=== PATIENT | female | born 1995 | race Caucasian/White ===

== ENCOUNTER 2018-01-16 13:50 | Emergency (ER) | payer OTHER, SELFPAY ==
--- NOTE | 2018-01-16 13:59 | ED_ITS ---
HPI - Female Genitourinary <VICTORINA Rocha - Last Filed: 01/16/18 22:06> General Chief complaint: Urogenital-Female Stated complaint: 'UTI' Time Seen by Provider: 01/16/18 14:09 History of Present Illness HPI Narrative: Healthy 22-year-old female here for complaint of having dysuria and increased urinary frequency for the last 2-3 days. She states that the symptoms have worsened a little bit today with worsening discomfort. She denies any flank pain. No nausea or vomiting. No fevers or chills. Pain is limited to the suprapubic area she denies any other concerns or complaints. Complaint: dysuria Related Data Previous Rx's Medication Instructions Recorded phenazopyridine [Pyridium] 200 mg PO TID PRN #6 tab 01/16/18 Allergies Allergy/AdvReac Type Severity Reaction Status Date / Time No Known Drug Allergies Allergy Verified 01/16/18 14:06 Review of Systems <VICTORINA Rocha - Last Filed: 01/16/18 22:06> Constitutional Denies chills, Denies fever(s), Denies lethargy and Denies weakness Eyes Denies change in vision, Denies eye discharge, Denies irritation and Denies loss of vision ENT Ears, Nose, Mouth, and Throat: Denies change in voice, Denies neck pain and Denies sore throat Cardiovascular Denies chest pain, Denies irregular heart rhythm, Denies lightheadedness, Denies palpitations and Denies orthopnea Gastrointestinal Gastrointestinal: Denies abdominal pain, Denies change in bowel habits, Denies diarrhea, Denies nausea and Denies vomiting Genitourinary Reports dysuria and Reports urinary urgency Musculoskeletal Denies neck pain Integumentary/Breasts Denies pruritus, Denies erythema, Denies rash and Denies wounds Neurologic Denies loss of vision and Denies weakness Endocrine Denies palpitations Exam <VICTORINA Rocha - Last Filed: 01/16/18 22:06> Initial Vital Signs Initial Vital Signs: Vital Signs Temperature 98.5 F 01/16/18 14:06 Pulse Rate 57 L 01/16/18 14:06 Respiratory Rate 16 01/16/18 14:06 Blood Pressure 100/53 L 01/16/18 14:06 Pulse Oximetry 100 01/16/18 14:06 Const General: cooperative and well developed Nutritional Appearance: well nourished Orientation: alert, awake, oriented x3 and not confused HENNC Mouth: oral mucosae normal, oropharynx normal and moist mucous membranes Eyes Conjunctivae: conjunctivae normal Sclera: sclerae normal Pupils: PERRL EOM: EOM intact bilaterally Resp Effort & Inspection: normal respiratory effort, able to speak in complete sentences, no respiratory distress and no use of accessory muscles Auscultation: clear to auscultation bilaterally, no rales, no rhonchi and no wheezes Cardio Rate: regular rate Rhythm: regular rhythm Heart Sounds: no click, no gallops, no murmurs and no rubs GI Inspection: normal to inspection Palpation: soft, No guarding, No hepatomegaly, No hernia, No mass and No tender General: No CVA tenderness Skin General: no rashes or lesions noted, No jaundice and No petechiae <Ishan Parry DO - Last Filed: 02/04/18 07:32> Initial Vital Signs Initial Vital Signs: Vital Signs Temperature 98.5 F 01/16/18 14:06 Pulse Rate 57 L 01/16/18 14:06 Respiratory Rate 16 01/16/18 14:06 Blood Pressure 100/53 L 01/16/18 14:06 Pulse Oximetry 100 01/16/18 14:06 Course <VICTORINA Rocha - Last Filed: 01/16/18 22:06> Orders Ordered: ED Orders 01/16/18 13:38 Urine Culture Stat Urine Microscopic Stat Vital Signs - 8 hr 01/16/18 14:06 Temperature 98.5 F Pulse Rate 57 L Respiratory Rate 16 Blood Pressure 100/53 L Pulse Oximetry 100 <Ishan Parry DO - Last Filed: 02/04/18 07:32> Orders Ordered: ED Orders 01/16/18 13:38 Urine Culture Stat Urine Microscopic Stat Vital Signs - 8 hr 01/16/18 14:06 Temperature 98.5 F Pulse Rate 57 L Respiratory Rate 16 Blood Pressure 100/53 L Pulse Oximetry 100 MDM - Female Genitourinary <VICTORINA Rocha Last Filed: 01/16/18 22:06> Lab Data Lab Results 01/16/18 Range/Units 13:38 Urine RBC 5-10/hpf H (0-5/HPF) Urine WBC 30-100/hpf H (0-5/HPF) Ur Squamous Epith Cells 0-1 /hpf Urine Bacteria Few (2-10) H (None) Ur Culture Indicated? Specimen cultured Micro UA Comment Not Reportable MDM Narrative Medical decision making narrative: Urinalysis indicates urinary tract infection. She is placed on a Macrobid and Pyridium. Plenty of fluids. Follow up with primary care provider in the next few days. Culture is pending. For any worsening symptoms return to the emergency room. <Ishan Parry DO - Last Filed: 02/04/18 07:32> Lab Data Lab Results 01/16/18 Range/Units 13:38 Urine RBC 5-10/hpf H (0-5/HPF) Urine WBC 30-100/hpf H (0-5/HPF) Ur Squamous Epith Cells 0-1 /hpf Urine Bacteria Few (2-10) H (None) Ur Culture Indicated? Specimen cultured Micro UA Comment Not Reportable Discharge Plan Departure Patient Disposition: Home, Self-Care Clinical Impression: Urinary tract infection Discharge Date/Time: 01/16/18 14:46 Interventions: ED Discharge Assessment Last Done: 01/16/18 14:46 Instructions: DI for Urinary Tract Infection (UTI) Activity Restrictions/Additional Instructions: Urinalysis indicates urinary tract infection. Urine place an antibiotic called Macrobid use as directed. They have also been placed on a Pyridium to help with the burning with urination. He advised that the Pyridium will turn her urine orange. Plenty of fluids. Follow up with primary care provider. Return to the emergency room for any worsening symptoms. Prescriptions: New phenazopyridine [Pyridium] 200 mg tablet 200 mg PO TID PRN (Reason: pain) Qty: 6 RF: 0 Referrals: [facility] [Provider Group] <Ishan Parry DO - Last Filed: 02/04/18 07:32> Cosign ED Attending Cosignature Attestation: I was immediately available in the department for consultation. This documentation has been reviewed and I agree with assessment and plan. Supervised by Ishan Parry DO
[2018-01-16 14:06] VITALS: BP 100/53; PULSE 57; RESP 16; TEMP 36.9; O2SAT 100
[2018-01-16 14:28] LABS: RBC Urine 5-10/HPF (0-5/HPF); Squamous Epithelial Cell Urine 0-1 /HPF; WBC Urine 30-100/HPF (0-5/HPF)
[2018-01-16 14:29] LABS: Bacteria Urine Few (2-10); Culture Indicated Urine Specimen Cultured
== END 2018-01-16 14:46 | disposition home or self-care (01) ==
LOC: ED 14:43
PROVIDERS: Emergency Provider Nurse Practitioner Family
DX: N39.0 Urinary tract infection, site not specified (principal)
CPT/HCPCS: 81003; 81015; 81025; 87086; 87186; 99282